=== PATIENT | male | born 1960 | race Caucasian/White ===

== ENCOUNTER 2019-03-30 12:23 | Outpatient (CLI) | payer BC ==
[2019-03-30] MEDS ORDERED: Lidocaine 1% PF 10 ML AMP ONE (13:00)
[2019-03-30] MEDS ORDERED: Iopamidol 300 61% 100 ML VIAL FS ONE (13:00)
[2019-03-30] MEDS ORDERED: Gadobenate Dimeglumine 529 MG/1 ML (20ML VIAL) ONE (13:00)
[2019-03-30] MEDS ORDERED: EPINEPHrine 1 MG/ML AMP ONE (13:00)
--- NOTE | 2019-03-30 14:04 | RAD ---
XR Shoulder Rt Arthrogram History: Shoulder pain M 25.511 Comparison: None. Findings: Patient was brought to the fluoroscopy suite. All questions were answered. Informed consent was obtained. Timeout performed. The patient's right shoulder was prepped and draped in normal sterile fashion. 3 mL of lidocaine was instilled into the superficial and deep soft tissues. Using fluoroscopic guidance a 22-gauge spinal needle was used to instill contrast within the glenohum eral joint. Impression: Technically successful fluoroscopic guided right shoulder arthrogram for MRI.
--- NOTE | 2019-03-30 15:13 | MRI ---
MRI Upper Ext Jt Rt W Con History: Shoulder pain. Comparison: Arthrogram same day Findings: MRI right shoulder is performed after the intra-articular instillation of contrast. Biceps tendon: Intact. Labrum: Intact. Prominent sublabral sulcus and foramen. Rotator cuff: U shaped tear mid fibers series supraspinatus tendon at the footprint measuring 8 mm in AP dimension with a 6 mm gap. Associated with this full-thickness tear is partial articular surface supraspinatus tendon avulsion from the footprint involving undersurface 50% of the entirety o f the supraspinatus tendon. The undersurface torn/avulsed fibers are retracted to the mid humeral head. Moderate tendinosis infraspinatus tendon. Bones: Mild degenerative disease acromioclavicular joint. Normal glenoid version. Small subcortical c ysts deep to the infraspinatus tendon near the footprint, chronic internal impingement. Type II acromion. Muscles: Muscle signal and bulk is normal. Impression: 1. U-shaped full-thickness tear mid 8 mm fibers supraspinatus tendon from the footprint with a 6 mm g ap. 2. High-grade undersurface partial tearing, 50-60%, of the entire supraspinous tendon from the footpr int retracted to the mid humeral head. 3. Moderate 30-40% undersurface partial tearing of the infraspinatus tendon. 4. Intact labrum. 5. Intact biceps tendon. 6. No significant muscle atrophy.
== END 2019-03-30 12:24 | disposition home or self-care (01) ==
LOC: RAD 12:23
PROVIDERS: ATTEND Orthopaedic Surgery
DX: M25.511 Pain in right shoulder (principal); M75.101 Unspecified rotator cuff tear or rupture of right shoulder, not specified as traumatic
CPT/HCPCS: 23350; A9577; J0171; J2001; Q9967

== ENCOUNTER 2019-05-06 09:11 | Day surgery (SDC) | payer BC ==
[2019-05-05 10:58] VITALS: BMI 22.6
[2019-05-06 10:19] LABS: #Basophils 0.1 thou/uL (0.0-0.2); #Eosinphils 0.2 thou/uL (0.0-0.7); #Lymphocytes 2.2 thou/uL (1.20-3.40); #Monocytes 0.5 thou/uL (0.11-0.59); #Neutrophils 3.1 thou/uL (1.40-6.50); %Basophils 1.3 % (0.0-1.0); %Eosinophils 2.9 % (0.0-10.0); %Lymphocytes 36.1 % (21.0-51.0); %Monocytes 8.4 % (0.0-10.0); %Neutrophils 51.5 % (42.0-75.0); Hemoglobin 13.8 g/dL (14.0-18.0); Mean Corpuscular HGB CONC 34.3 g/dL (32.0-36.0); Mean Corpuscular Hemoglobin 32.5 pg (27.0-31.0); Mean Corpuscular Volume 94.7 fL (78.0-98.0); Mean Platelet Volume 6.6 fL (7.4-10.4); Platelet Count 338 thou/uL (130-400); RBC Distribution Width 10.9 % (11.5-14.5); Red Blood Cell (RBC) Count 4.26 mill/uL (4.70-6.10)
[2019-05-06 10:33] LABS: Anion Gap 13 mmol/L (10-20); BUN (Urea Nitrogen) 17 mg/dL (8.4-25.7); Calc. Creatinine Clearance 89 mL/min (70-130); Calcium 9.8 mg/dL (7.8-10.44); Carbon Dioxide 25 mmol/L (22-29); Chloride 105 mmol/L (98-107); Estimated GFR-MDRD 85; Glucose 88 mg/dL (70-105); Potassium 4.3 mmol/L (3.5-5.1); Sodium 139 mmol/L (136-145)
[2019-05-06] MEDS ORDERED: Midazolam HCl 2 mg/2 ml Vial ONE (10:55)
[2019-05-06] MEDS ORDERED: Fentanyl 100 MCG/2 ML VIAL ONE (10:55)
[2019-05-06] MEDS ORDERED: traMADol HCl 50 MG TAB PO PRN ×2 (11:16)
[2019-05-06] MEDS ORDERED: Zolpidem Tartrate 5 MG TAB PO PRN (11:16)
[2019-05-06] MEDS ORDERED: Promethazine HCl 25 MG/ML VIAL IM PRN (11:16)
[2019-05-06] MEDS ORDERED: HYDROcodone/Acetaminophen 10/325 mg Tablet PO PRN ×2 (11:16)
[2019-05-06] MEDS ORDERED: Ondansetron PF 4 MG/2 ML Vial IVP PRN (11:16)
[2019-05-06] MEDS ORDERED: Ketorolac Tromethamine 30 MG/ML VIAL IVP PRN (11:16)
[2019-05-06] MEDS ORDERED: Ropivacaine 0.2% 550 ML 550 ML NERVE BLCK SCH (11:16)
[2019-05-06] MEDS ORDERED: Fentanyl 100 MCG/2 ML VIAL IV PRN (11:17)
[2019-05-06] MEDS ORDERED: Bupivacaine/Epinephrine 0.25% 30 ML VIAL ONE (12:23)
--- NOTE | 2019-05-06 20:12 | OP ---
DATE OF PROCEDURE: 05/06/2019 PREOPERATIVE DIAGNOSES: Right shoulder impingement with rotator cuff tear and a biceps instability secondary to degenerative SLAP tear. POSTOPERATIVE DIAGNOSES: Right shoulder impingement with rotator cuff tear and a biceps instability secondary to degenerative SLAP tear. PROCEDURE PERFORMED: Right shoulder arthroscopy followed by arthroscopic rotator cuff repair, followed by open biceps tenodesis. CUSTOMER SERVICE OPERATOR: Last Cage PA-C. ESTIMATED BLOOD LOSS: Minimal. COMPLICATIONS: None. ANESTHESIA: He did have a general anesthetic as well as a preoperative block. DISPOSITION: He went to recovery room in stable condition. IMPLANTS: We used a triple loaded titanium anchor for the cuff. We used a 7 x 23 BioComposite Bio-Tenodesis screw for the biceps tendon. He did go to recovery room in stable condition. INDICATIONS: A 58-year-old male, who has been dealing with pain, weakness, and inability to use his arm as he would like for number of months. He has tried injections, tried therapy and unfortunately this failed to relieve the symptoms. DESCRIPTION OF PROCEDURE: After all appropriate consent forms were explained and signed, he was taken to the operative room and at this time was given general anesthetic. Once the level of anesthesia was appropriate, he was rolled into the left lateral decubitus position with all bony prominences well padded. An axillary roll was placed underneath the left axilla. Beanbag was inflated to hold him in this position. All bony prominences were well padded. The arm was taken through full range of motion and at this time, it was held up when the arthroscopic apparatus with 10 pounds in standard fashion. The right shoulder and upper extremity were then prepped and draped in standard surgical fashion. Bony anatomical landmarks were drawn out, and the subacromial space was infiltrated with Marcaine with epinephrine. Posterior portal was established. Scope was placed into the shoulder joint. Anterior working portal was then made using a needle localization technique. Diagnostic arthroscopy commenced. The articular surface of the humeral head and glenoid were in good condition. There were no loose bodies noted in the axillary pouch. The rotator cuff was found to be torn. The undersurface of this was debrided with a shaver at this time. The subscapularis tendon was in good condition. The biceps was unstable secondary to a large degenerative SLAP tear and at this time, a green cannula was placed anteriorly. An 18-gauge needle was used to anton the biceps and put a stitch through this. The SERFAS energy was then used to cut the biceps off the superior labral origin. Once this was done, we then removed the scope, replaced into the subacromial space. Lateral working portal was made, and bursa was removed from off the underlying cuff. A large cuff tear was noted, essentially the entire where the supraspinatus. At this time, the edges were freshened up with a shaver. All soft tissue was removed from the bony insertion and slightly decorticated with a shaver. Subacromial decompression was performed using the surface as well as the shaver, and at this time, the PassPort was placed laterally. The green cannula was placed anteriorly. We then placed a triple loaded titanium anchor into the greater tuberosity. We then pulled all the stitches off the front. We then sequentially placed these through the rotator cuff using the Scorpion device in mattress fashion. All these were tied. The back sutures were cut and were not incorporated into the double row repair. The front four stitches were placed into the double row repair, which was performed laterally down the arm by using a punch followed by a SwiveLock. Stitches were cut off and at this time, our repair was evaluated. It was found to be stable and tight. At this time, the scope was removed. Shoulder was drained. A 15 blade was used to then incise down through skin to perform our biceps tenodesis. Bovie was used to coagulate any brisk venous bleeding. We then sharply incised the deltoid fascia and used our finger to dissect in line with the deltoid fibers to get down to the underlying humerus in transverse humeral ligament. We then opened up the transverse humeral ligament and brought the biceps out into the wound. This was then sutured. The intra-articular portion was cut off. We then placed our pin. We drilled with a 7 mm reamer to a depth of 25 and placed our 7 x 23 BioComposite Bio-Tenodesis screw. Sutures were tied over top of this, so that this would not back out. At this time, we thoroughly irrigated and dried. We allowed the deltoid to close upon itself, then ran a running Vicryl to close our fascia followed by 2-0 Vicryl and sutures to close the skin. Bulky sterile dressing was applied. The patient was then awakened, taken to recovery room in stable condition. All counts were correct at the end of the case and he did receive preoperative IV antibiotics. Job ID: [id number]
--- NOTE | 2019-05-10 10:29 | EKG ---
Test Reason : PREOP Blood Pressure : / mmHG Vent. Rate : 072 BPM Atrial Rate : 072 BPM P-R Int : 148 ms QRS Dur : 088 ms QT Int : 382 ms P-R-T Axes : 067 034 031 degrees QTc Int : 418 ms Normal sinus rhythm Moderate voltage criteria for LVH, may be normal variant Borderline ECG No previous ECGs available Confirmed by MEDHAT PHAM MD ([id number]) on 05/10/2019 10:28:53 AM Referred By: CIELO Confirmed By:MEDHAT PHAM MD
== END 2019-05-06 16:30 | disposition home or self-care (01) ==
LOC: SDC 09:11
PROVIDERS: ATTEND Orthopaedic Surgery
PROC: 0RHJ44Z Insertion of Internal Fixation Device into Right Shoulder Joint, Percutaneous Endoscopic Approach (ICD-10-PCS; principal; 2019-05-06)
PROC: 0LS10ZZ Reposition Right Shoulder Tendon, Open Approach (ICD-10-PCS; principal; 2019-05-06)
PROC: 0RNJ4ZZ Release Right Shoulder Joint, Percutaneous Endoscopic Approach (ICD-10-PCS; principal; 2019-05-06)
PROC: 0LQ14ZZ Repair Right Shoulder Tendon, Percutaneous Endoscopic Approach (ICD-10-PCS; principal; 2019-05-06)
PROC: 3E0T3BZ Introduction of Anesthetic Agent into Peripheral Nerves and Plexi, Percutaneous Approach (ICD-10-PCS; principal; 2019-05-06)
PROC: 0RHJ04Z Insertion of Internal Fixation Device into Right Shoulder Joint, Open Approach (ICD-10-PCS; principal; 2019-05-06)
DX: S43.431A Superior glenoid labrum lesion of right shoulder, initial encounter (principal); M25.311 Other instability, right shoulder; M75.121 Complete rotator cuff tear or rupture of right shoulder, not specified as traumatic; M25.811 Other specified joint disorders, right shoulder; G89.18 Other acute postprocedural pain; I10 Essential (primary) hypertension; N40.0 Benign prostatic hyperplasia without lower urinary tract symptoms; E78.5 Hyperlipidemia, unspecified; Z79.899 Other long term (current) drug therapy; Z88.8 Allergy status to other drugs, medicaments and biological substances
CPT/HCPCS: 80048; 85025; 93005; 93010; A4306; C1713; J0690; J2250; J2795; J3010